=== PATIENT | female | born 1985 | race Caucasian/White ===

== ENCOUNTER 2020-08-16 22:32 | Emergency (ER) | payer OTHER ==
[2020-08-16 22:42] VITALS: BMI 31.5
[2020-08-16 23:37] LABS: BASO % 0.7 % (0-2.0); EOS % 0.5 % (0-4.5); HEMATOCRIT 32.1 % (32.4-45.2); HEMOGLOBIN 10.7 GM/dL (10.7-15.3); LYMPH % 20.9 % (8-40); MCH 27.3 pg (25.7-33.7); MCHC 33.4 g/dl (32.0-36.0); MEAN CELL VOLUME 81.8 fl (80-96); MEAN PLT VOLUME 9.6 fl (7.5-11.1); MONO % 8.1 % (3.8-10.2); NEUT % 69.8 % (42.8-82.8); PLATELET COUNT 303 K/MM3 (134-434); RBC 3.92 M/mm3 (3.60-5.2); RDW 13.8 % (11.6-15.6); WHITE BLOOD COUNT 9.5 K/mm3 (4.0-10.0)
[2020-08-16 23:57] LABS: POTASSIUM 3.8 mmol/L (3.5-5.1)
[2020-08-16 23:59] LABS: ALBUMIN 2.5 g/dl (3.4-5.0); CALCIUM 8.5 mg/dL (8.5-10.1)
[2020-08-17 00:02] LABS: CREATININE 0.8 mg/dL (0.55-1.3)
[2020-08-17 00:03] LABS: ANISOCYTOSIS 0; MACROCYTOSIS 0; OVALOCYTE 1+; PLATELET ESTIMATE NORMAL
[2020-08-17 00:04] LABS: BILIRUBIN,TOTAL 1.1 mg/dL (0.2-1); TOT PROT 6.5 g/dl (6.4-8.2)
[2020-08-17 00:17] LABS: EPI CELLS 24 /uL (0-25.1); HYALINE CASTS 3 /uL (0-3.1); PH,URINE 6.5 (5.0-8.0); URINE APPEARANCE CLEAR; URINE BACTERIA 2490 /uL (0-1359); URINE BILIRUBIN 2+ (NEGATIVE); URINE COLOR DK YELLOW; URINE GLUCOSE (UA) NEGATIVE (NEGATIVE); URINE KETONE TRACE (NEGATIVE); URINE LEUK ESTERASE NEGATIVE (NEGATIVE); URINE NITRITE NEGATIVE (NEGATIVE); URINE PROTEIN 1+ (NEGATIVE); URINE RBC 43 /uL (0-23.9); URINE WBC 12 /uL (0-25.8)
[2020-08-17] MEDS ORDERED: CEPHALEXIN MONOHYDRATE 500 MG CAPSULE (UD) PO ONE (01:55)
[2020-08-17] MEDS ORDERED: CEPHALEXIN MONOHYDRATE 500 MG CAPSULE (UD) ONE (02:16)
[2020-08-17] MEDS ORDERED: DEXTROSE 5%-LACTATED RINGERS 1,000 ML IV SCH (03:30)
[2020-08-17 04:32] VITALS: PULSE 66; TEMP 98.3
[2020-08-17] MEDS ORDERED: URSODIOL 300 MG CAPSULE PO SCH (06:00)
[2020-08-17 07:37] VITALS: BP 102/63
[2020-08-22 21:10] LABS: CHENODEOXYCHOLIC ACID 13 umol/L (.); CHOLIC ACID CA 29 umol/L (.); DEOXYCHOLIC ACID DCA 1.1 umol/L (.); URSODEOXYCHOLIC ACID UDC < 0.10 umol/L (.)
== END 2020-08-17 11:24 | disposition home or self-care (01) ==
LOC: JER 22:32
DX: R94.5 Abnormal results of liver function studies (principal); L29.9 Pruritus, unspecified
CPT/HCPCS: 36415; 80053; 81003; 82542; 85025; 87086; 99284-25

== ENCOUNTER 2020-08-23 08:25 | Inpatient (IN) | payer OTHER ==
[2020-08-23 09:23] VITALS: BMI 29.9
[2020-08-23] MEDS ORDERED: morphine SULFATE/Preservative Free 0.5 MG/ML (1cc Syringe) ONE (10:18)
[2020-08-23] MEDS ORDERED: CITRIC ACID/SODIUM CITRATE 30 ML UNIT-DOSE CUP PO ONE (10:26)
[2020-08-23] MEDS ORDERED: ELECTROLYTE-148 SOLN 1,000 ML IV SCH (10:30)
[2020-08-23] MEDS ORDERED: ePHEDrine SULFATE 50 MG/1 ML AMPULE ONE (10:50)
[2020-08-23] MEDS ORDERED: GLYCOPYRROLATE 0.2 MG/1 ML VIAL ONE (11:25)
[2020-08-23] MEDS ORDERED: KETOROLAC TROMETHAMINE 30 MG/1 ML VIAL ONE (11:25)
[2020-08-23] MEDS ORDERED: ceFAZolin SODIUM 1 GM VIAL ONE (11:25)
[2020-08-23] MEDS ORDERED: DEXAMETHASONE SOD PHOSPHATE 4 MG/1 ML VIAL ONE (11:25)
[2020-08-23] MEDS ORDERED: ONDANSETRON 4 MG/2 ML VIAL ONE (11:25)
[2020-08-23] MEDS ORDERED: KETAMINE HCL 500 MG/10 ML VIAL ONE (11:48)
[2020-08-23] MEDS ORDERED: MIDAZOLAM HCL 2 MG/2 ML SINGLE DOSE VIAL ONE (11:51)
[2020-08-23 12:32] LABS: CORD HCO3 25.3 mmHg (20-29); CORD pH 7.235 (7.14-7.44)
[2020-08-23 12:33] LABS: CORD BASE EXCESS -3.6 mmol/L (0-2); CORD PCO2 41.7 mmHg (30-78); CORD pH 7.34 (7.14-7.44)
[2020-08-23] MEDS ORDERED: ACETAMINOPHEN 325 MG TABLET (FP) PO PRN (12:37)
[2020-08-23] MEDS ORDERED: ACETAMINOPHEN 1000 MG/100 ML VIAL (NON FORMULARY) IVPB PRN (12:37)
[2020-08-23] MEDS ORDERED: IBUPROFEN 800 MG/8 ML IJ IVPB PRN (12:37)
[2020-08-23] MEDS ORDERED: ONDANSETRON 4 MG/2 ML VIAL IVPB PRN (12:37)
[2020-08-23] MEDS ORDERED: SENNOSIDES/DOCUSATE COMBO (SENNA PLUS) TABLET (UD) PO PRN (12:37)
[2020-08-23] MEDS: OXYTOCIN 20 UNITS in 0.9% NS 20 UNIT/1,000 ML INFUS.BAG IV SCH (13:00)
[2020-08-23] MEDS ORDERED: ACETAMINOPHEN INJECTION 100 ML IVPB ONE (14:40)
[2020-08-23] MEDS: URSODIOL 300 MG CAPSULE PO SCH ×2 (14:48→22:22)
[2020-08-23] MEDS: PRENATAL VITAMINS W/ FOLIC ACID TABLET (FP) PO SCH ×2 (14:48→22:37)
[2020-08-23] MEDS ORDERED: OXYTOCIN 20 UNITS in 0.9% NS 20 UNIT/1,000 ML INFUS.BAG IV ONE (15:02)
[2020-08-24 06:42] LABS: BASO % 0.2 % (0-2.0); EOS % 0.2 % (0-4.5); HEMATOCRIT 28.5 % (32.4-45.2); HEMOGLOBIN 9.4 GM/dL (10.7-15.3); LYMPH % 14.8 % (8-40); MCH 26.8 pg (25.7-33.7); MCHC 33.1 g/dl (32.0-36.0); MEAN CELL VOLUME 80.9 fl (80-96); MEAN PLT VOLUME 9.6 fl (7.5-11.1); MONO % 7.6 % (3.8-10.2); NEUT % 77.2 % (42.8-82.8); PLATELET COUNT 271 K/MM3 (134-434); RBC 3.52 M/mm3 (3.60-5.2); RDW 14.1 % (11.6-15.6); WHITE BLOOD COUNT 12.5 K/mm3 (4.0-10.0)
[2020-08-24] MEDS: URSODIOL 300 MG CAPSULE PO SCH (06:53)
[2020-08-24] MEDS: PRENATAL VITAMINS W/ FOLIC ACID TABLET (FP) PO SCH ×3 (08:28→21:24)
[2020-08-24] MEDS: oxyCODONE HCL 5 MG TABLET PO PRN ×2 (08:29→15:28)
[2020-08-24] MEDS: IBUPROFEN 600 MG TABLET (FP) PO PRN ×2 (12:09→21:26)
[2020-08-24] MEDS ORDERED: BISACODYL 10 MG SUPP.RECT RC PRN (12:37)
[2020-08-24 13:36] LABS: BASO % 0.2 % (0-2.0); EOS % 0.1 % (0-4.5); HEMATOCRIT 29.7 % (32.4-45.2); HEMOGLOBIN 9.7 GM/dL (10.7-15.3); LYMPH % 13.4 % (8-40); MCH 26.5 pg (25.7-33.7); MCHC 32.5 g/dl (32.0-36.0); MEAN CELL VOLUME 81.7 fl (80-96); MEAN PLT VOLUME 9.4 fl (7.5-11.1); MONO % 6.1 % (3.8-10.2); NEUT % 80.2 % (42.8-82.8); PLATELET COUNT 293 K/MM3 (134-434); RBC 3.64 M/mm3 (3.60-5.2); RDW 14.1 % (11.6-15.6); WHITE BLOOD COUNT 12.4 K/mm3 (4.0-10.0)
[2020-08-24 14:12] LABS: POTASSIUM 3.8 mmol/L (3.5-5.1)
[2020-08-24 14:14] LABS: ALBUMIN 2.2 g/dl (3.4-5.0); CALCIUM 8.6 mg/dL (8.5-10.1)
[2020-08-24 14:15] LABS: BLOOD UREA NITROGEN 4.9 mg/dL (7-18)
[2020-08-24 14:18] LABS: BILIRUBIN,DIRECT 0.5 mg/dL (0.0-0.2); CREATININE 0.7 mg/dL (0.55-1.3)
[2020-08-24 14:19] LABS: BILIRUBIN,TOTAL 0.9 mg/dL (0.2-1); TOT PROT 5.6 g/dl (6.4-8.2)
[2020-08-24] MEDS: OXYTOCIN 20 UNITS in 0.9% NS 20 UNIT/1,000 ML INFUS.BAG IV SCH (15:21)
[2020-08-24] MEDS: SIMETHICONE 80 MG TAB.CHEW (FP) PO PRN (21:26)
[2020-08-25] MEDS: oxyCODONE HCL 5 MG TABLET PO PRN ×3 (01:15→14:13)
[2020-08-25] MEDS: IBUPROFEN 600 MG TABLET (FP) PO PRN ×3 (01:16→14:12)
[2020-08-25] MEDS: SIMETHICONE 80 MG TAB.CHEW (FP) PO PRN (01:17)
[2020-08-25] MEDS: PRENATAL VITAMINS W/ FOLIC ACID TABLET (FP) PO SCH ×2 (08:05→14:09)
[2020-08-25 08:48] VITALS: BP 103/63; PULSE 62; TEMP 98.5
== END 2020-08-25 16:05 | disposition home or self-care (01) | DRG 540 ==
LOC: JLDR 08:25 → J3W 15:13
PROVIDERS: ADMIT Family Medicine; ATTEND Family Medicine
PROC: 10D00Z1 Extraction of Products of Conception, Low, Open Approach (ICD-10-PCS; principal; 2020-08-23)
PROC: 0UL77ZZ Occlusion of Bilateral Fallopian Tubes, Via Natural or Artificial Opening (ICD-10-PCS; 2020-08-23)
DX: O34.219 Maternal care for unspecified type scar from previous cesarean delivery (principal); O26.62 Liver and biliary tract disorders in childbirth; K83.1 Obstruction of bile duct; Z3A.37 37 weeks gestation of pregnancy; Z37.0 Single live birth; Z30.2 Encounter for sterilization
CPT/HCPCS: 36415; 36600; 80048; 80076; 82803; 85025; 88302-TC; 88307-TC; J0131